=== PATIENT | female | born 1990 | race Two or more races ===

== ENCOUNTER 2020-11-04 10:39 | Emergency (ER) | payer OTHER ==
[~2020-11-04] VITALS: Ht 154.9 cm; Wt 54.0 kg
[2020-11-04 10:40] VITALS: BP 109/74
== END 2020-11-04 12:13 | disposition home or self-care (01) ==
LOC: EMS 10:42
DX: Z11.1 Encounter for screening for respiratory tuberculosis (principal)
CPT/HCPCS: 71045; 99283